=== PATIENT | female | born 1995 | race Caucasian/White ===

== ENCOUNTER 2019-07-12 11:28 | Inpatient (IN) | payer MEDICAID ==
[2019-07-12] MEDS: KETOROLAC 30 MG INJ IV (13:47)
[2019-07-12] MEDS: CEFTRIAXONE 1 GM/50 ML (PMX) 50 ML IVPB (13:49)
[2019-07-12 13:51] LABS: ADD MAN DIFF? NO
[2019-07-12 13:56] LABS: WHITE BLOOD COUNT 14.7 10^3/ul (4.8-10.8)
[2019-07-12 13:56] LABS: BASOPHILS % 0.1 % (0.0-2.0); HEMATOCRIT 41.2 % (37.0-47.0); HEMOGLOBIN 13.8 g/dl (12.0-16.0); LYMPHOCYTES # 1.8 10^3/ul (0.8-2.9); LYMPHOCYTES % 12.5 % (15.0-51.0); MEAN CORPUSCULAR HEMOGLOBIN 31.4 pg (29.0-33.0); MEAN CORPUSCULAR HGB CONC 33.5 g/dl (32.0-37.0); MEAN CORPUSCULAR VOLUME 93.8 fl (82.0-101.0); MEAN PLATELET VOLUME 11.5 fl (7.4-10.4); MONOCYTES % 6.4 % (0.0-11.0); NEUTROPHIL # 11.9 10^3/ul (1.6-7.5); NEUTROPHILS % 80.5 % (39.0-77.0); PLATELET COUNT 208 10^3/UL (140-415); RED BLOOD COUNT 4.39 10^6/ul (4.20-5.40); RED CELL DISTRIBUTION WIDTH 11.8 % (11.5-14.5)
[2019-07-12 14:14] LABS: ALANINE AMINOTRANSFERASE 18 IU/L (13-69); ALBUMIN 3.9 g/dl (3.3-4.9); ALBUMIN/GLOBULIN RATIO 1.21; ALKALINE PHOSPHATASE 74 IU/L (42-121); ANION GAP 9 (5-13); ASPARTATE AMINO TRANSFERASE 20 IU/L (15-46); BILIRUBIN,INDIRECT 0.8 mg/dl (0-1.1); BILIRUBIN,TOTAL 0.8 mg/dl (0.2-1.3); BLOOD UREA NITROGEN 10 mg/dl (7-20); CALCIUM 9.1 mg/dl (8.4-10.2); CARBON DIOXIDE 25 mmol/L (21-31); CHLORIDE 104 mmol/L (97-110); CREATININE 0.69 mg/dl (0.44-1.00); Estimated GFR > 60 mL/min (>60); GLUCOSE 97 mg/dl (70-220); POTASSIUM 3.3 mmol/L (3.5-5.1); SODIUM 138 mmol/L (135-144); TOTAL PROTEIN 7.1 g/dl (6.1-8.1)
[2019-07-12] MEDS ORDERED: ACETAMINOPHEN 325 MG TAB PO ×2 (15:00→15:30)
[2019-07-12] MEDS: ONDANSETRON 4 MG INJ IV ×2 (15:20→21:37)
[2019-07-12] MEDS: morphine 4 MG/ML VIAL IV (15:20)
[2019-07-12] MEDS: CEFEPIME 2GM/50 ML (PMX) 50 ML IVPB (15:21)
[2019-07-12] MEDS: SODIUM CHLORIDE 0.9% 1L BAG IV* (15:21)
[2019-07-12] MEDS ORDERED: DOCUSATE SODIUM 100 MG CAP PO (15:30)
[2019-07-12] MEDS ORDERED: MAGNESIUM HYDROXIDE 30ML CUP PO (15:30)
[2019-07-12] MEDS ORDERED: VANCOMYCIN IV PER PHARMACY XX (15:30)
[2019-07-12] MEDS ORDERED: NACL 0.9% 3 ML SYG IV (15:30)
[2019-07-12 16:10] LABS: C-REACTIVE PROTEIN 14.2 mg/dl (0.0-0.9)
[2019-07-12] MEDS: VANCOMYCIN 1 GM (PMX) 250 ML IVPB (16:27)
[2019-07-12 16:52] LABS: ERYTHROCYTE SEDIMENTATION RATE 29 mm/Hr (0-20)
[2019-07-12] MEDS: POTASSIUM CHLORIDE 100 ML IVPB ×2 (17:30→21:43)
[2019-07-12 18:53] LABS: LACTIC ACID 0.6 mmol/L (0.5-2.0)
[2019-07-12] MEDS: DEXTROSE 5%-0.45% NACL 1,000 ML IV (19:22)
[2019-07-12] MEDS: CEFEPIME 1GM/50 ML (PMX) 50 ML IVPB (20:23)
[2019-07-12] MEDS: FAMOTIDINE 20 MG INJ IV (20:23)
[2019-07-12 20:38] LABS: LACTIC ACID 0.7 mmol/L (0.5-2.0)
[2019-07-12] MEDS: KETOROLAC 15 MG INJ IV (21:38)
[2019-07-12] MEDS: VANCOMYCIN 500 MG (PMX) 100 ML IVPB (23:49)
[2019-07-13] MEDS: POTASSIUM CHLORIDE (SR) 20 MEQ TAB PO ×2 (00:55→09:23)
[2019-07-13] MEDS: DEXTROSE 5%-0.45% NACL 1,000 ML IV ×2 (04:37→08:09)
[2019-07-13 05:22] LABS: ADD MAN DIFF? NO
[2019-07-13 05:24] LABS: BASOPHILS % 0.2 % (0.0-2.0); EOSINOPHILS % 0.4 % (0.0-7.0); HEMATOCRIT 32.3 % (37.0-47.0); HEMOGLOBIN 10.8 g/dl (12.0-16.0); LYMPHOCYTES # 1.8 10^3/ul (0.8-2.9); LYMPHOCYTES % 15.9 % (15.0-51.0); MEAN CORPUSCULAR HEMOGLOBIN 31.8 pg (29.0-33.0); MEAN CORPUSCULAR HGB CONC 33.4 g/dl (32.0-37.0); MEAN PLATELET VOLUME 11.8 fl (7.4-10.4); MONOCYTE # 0.8 10^3/ul (0.3-0.9); MONOCYTES % 7.4 % (0.0-11.0); NEUTROPHIL # 8.5 10^3/ul (1.6-7.5); NEUTROPHILS % 75.6 % (39.0-77.0); PLATELET COUNT 165 10^3/UL (140-415); RED CELL DISTRIBUTION WIDTH 11.9 % (11.5-14.5)
[2019-07-13 05:24] LABS: WHITE BLOOD COUNT 11.3 10^3/ul (4.8-10.8)
[2019-07-13] MEDS: ONDANSETRON 4 MG INJ IV ×3 (05:34→23:39)
[2019-07-13] MEDS: KETOROLAC 15 MG INJ IV ×2 (05:34→14:56)
[2019-07-13 05:51] LABS: ANION GAP 5 (5-13); BLOOD UREA NITROGEN 5 mg/dl (7-20); CALCIUM 7.6 mg/dl (8.4-10.2); CARBON DIOXIDE 23 mmol/L (21-31); CHLORIDE 106 mmol/L (97-110); CREATININE 0.56 mg/dl (0.44-1.00); Estimated GFR > 60 mL/min (>60); GLUCOSE 264 mg/dl (70-220); MAGNESIUM 1.7 mg/dl (1.7-2.5); POTASSIUM 3.1 mmol/L (3.5-5.1); SODIUM 134 mmol/L (135-144)
[2019-07-13] MEDS: FAMOTIDINE 20 MG INJ IV ×2 (08:07→20:39)
[2019-07-13] MEDS: VANCOMYCIN 500 MG (PMX) 100 ML IVPB ×3 (08:08→17:15)
[2019-07-13] MEDS ORDERED: D5W-0.45 NACL + KCL 20 MEQ 1,000 ML IV (08:30)
[2019-07-13] MEDS: NS + KCL 20 MEQ 1,000 ML IV ×3 (08:30→21:50)
[2019-07-13] MEDS: CEFEPIME 1GM/50 ML (PMX) 50 ML IVPB ×2 (09:16→20:39)
[2019-07-13] MEDS: MAGNESIUM SULFATE 2 GM/50 ML 50 ML IVPB (09:23)
[2019-07-13] MEDS: morphine 2 MG INJ IV ×2 (09:23→22:42)
[2019-07-13] MEDS: VANCOMYCIN 750 MG (PMX) 250 ML IVPB (23:31)
[2019-07-14] MEDS: NS + KCL 20 MEQ 1,000 ML IV (02:57)
[2019-07-14 04:57] LABS: ADD MAN DIFF? NO
[2019-07-14 05:01] LABS: BASOPHILS % 0.2 % (0.0-2.0); EOSINOPHILS # 0.1 10^3/ul (0.0-0.5); EOSINOPHILS % 0.6 % (0.0-7.0); HEMOGLOBIN 10.7 g/dl (12.0-16.0); LYMPHOCYTES # 2.1 10^3/ul (0.8-2.9); LYMPHOCYTES % 19.6 % (15.0-51.0); MEAN CORPUSCULAR HEMOGLOBIN 31.7 pg (29.0-33.0); MEAN CORPUSCULAR HGB CONC 33.4 g/dl (32.0-37.0); MEAN CORPUSCULAR VOLUME 94.7 fl (82.0-101.0); MEAN PLATELET VOLUME 11.1 fl (7.4-10.4); MONOCYTE # 0.9 10^3/ul (0.3-0.9); NEUTROPHIL # 7.6 10^3/ul (1.6-7.5); NEUTROPHILS % 71.3 % (39.0-77.0); PLATELET COUNT 187 10^3/UL (140-415); RED BLOOD COUNT 3.38 10^6/ul (4.20-5.40); RED CELL DISTRIBUTION WIDTH 11.2 % (11.5-14.5)
[2019-07-14 05:01] LABS: WHITE BLOOD COUNT 10.6 10^3/ul (4.8-10.8)
[2019-07-14 05:25] LABS: ALBUMIN 2.5 g/dl (3.3-4.9); ANION GAP 3 (5-13); BLOOD UREA NITROGEN 5 mg/dl (7-20); CALCIUM 8.2 mg/dl (8.4-10.2); CARBON DIOXIDE 24 mmol/L (21-31); CHLORIDE 109 mmol/L (97-110); CREATININE 0.52 mg/dl (0.44-1.00); GLUCOSE 82 mg/dl (70-220); PHOSPHORUS 3.6 mg/dl (2.5-4.9); POTASSIUM 4.1 mmol/L (3.5-5.1); SODIUM 136 mmol/L (135-144)
[2019-07-14] MEDS: VANCOMYCIN 750 MG (PMX) 250 ML IVPB ×3 (08:14→23:50)
[2019-07-14] MEDS: ONDANSETRON 4 MG INJ IV ×3 (08:16→17:09)
[2019-07-14] MEDS: morphine 2 MG INJ IV (08:16)
[2019-07-14] MEDS: FAMOTIDINE 20 MG INJ IV (08:16)
[2019-07-14] MEDS: CEFEPIME 1GM/50 ML (PMX) 50 ML IVPB (11:08)
[2019-07-14] MEDS: traMADol 50 MG TAB PO (11:57)
[2019-07-14] MEDS: HYDROCODONE/APAP (5/325) TAB PO (13:24)
[2019-07-14] MEDS: HYDROCODONE/APAP (10/325) TAB PO (17:09)
[2019-07-14] MEDS: CEFTRIAXONE 1 GM/50 ML (PMX) 50 ML IVPB (18:04)
[2019-07-14] MEDS: FAMOTIDINE 20 MG TAB PO (20:46)
[2019-07-15 08:40] LABS: ADD MAN DIFF? NO
[2019-07-15 08:44] LABS: WHITE BLOOD COUNT 10.3 10^3/ul (4.8-10.8)
[2019-07-15 08:44] LABS: BASOPHILS % 0.2 % (0.0-2.0); EOSINOPHILS # 0.1 10^3/ul (0.0-0.5); EOSINOPHILS % 0.7 % (0.0-7.0); HEMATOCRIT 36.8 % (37.0-47.0); HEMOGLOBIN 12.4 g/dl (12.0-16.0); LYMPHOCYTES # 1.7 10^3/ul (0.8-2.9); LYMPHOCYTES % 16.9 % (15.0-51.0); MEAN CORPUSCULAR HEMOGLOBIN 31.9 pg (29.0-33.0); MEAN CORPUSCULAR HGB CONC 33.7 g/dl (32.0-37.0); MEAN CORPUSCULAR VOLUME 94.6 fl (82.0-101.0); MEAN PLATELET VOLUME 11.5 fl (7.4-10.4); MONOCYTE # 0.8 10^3/ul (0.3-0.9); MONOCYTES % 8.1 % (0.0-11.0); NEUTROPHIL # 7.6 10^3/ul (1.6-7.5); NEUTROPHILS % 73.8 % (39.0-77.0); PLATELET COUNT 226 10^3/UL (140-415); RED BLOOD COUNT 3.89 10^6/ul (4.20-5.40); RED CELL DISTRIBUTION WIDTH 11.3 % (11.5-14.5)
[2019-07-15] MEDS: FAMOTIDINE 20 MG TAB PO ×2 (09:00→21:41)
[2019-07-15 09:11] LABS: ALBUMIN 3.2 g/dl (3.3-4.9); ANION GAP 5 (5-13); BLOOD UREA NITROGEN 3 mg/dl (7-20); CALCIUM 9.2 mg/dl (8.4-10.2); CARBON DIOXIDE 28 mmol/L (21-31); CHLORIDE 102 mmol/L (97-110); CREATININE 0.54 mg/dl (0.44-1.00); GLUCOSE 75 mg/dl (70-220); PHOSPHORUS 4.4 mg/dl (2.5-4.9); POTASSIUM 4.4 mmol/L (3.5-5.1); SODIUM 135 mmol/L (135-144)
[2019-07-15 09:14] LABS: VANCOMYCIN,TROUGH 8.5 ug/ml (10.0-20.0)
[2019-07-15] MEDS: VANCOMYCIN 750 MG (PMX) 250 ML IVPB (09:20)
[2019-07-15] MEDS: TRIMETHOPRIM/SULFAMETHOX (DS) TAB PO (11:39)
[2019-07-15] MEDS ORDERED: VANCOMYCIN IV PER PHARMACY XX (15:00)
[2019-07-15] MEDS ORDERED: CEFTRIAXONE 1 GM/50 ML (PMX) 50 ML IVPB (15:00)
[2019-07-15] MEDS: CEFTRIAXONE 1 GM/50 ML (PMX) 50 ML IVPB (15:04)
[2019-07-15] MEDS: VANCOMYCIN 1 GM (PMX) 250 ML IVPB (15:29)
[2019-07-15] MEDS ORDERED: VANCOMYCIN 1 GM 250 ML IVPB (16:00)
[2019-07-15] MEDS: VANCOMYCIN 1 GM 250 ML IVPB (23:38)
[2019-07-16] MEDS ORDERED: VANCOMYCIN 750 MG (PMX) 250 ML IVPB
[2019-07-16] MEDS: NAPROXEN 500 MG TAB PO ×2 (02:43→15:05)
[2019-07-16 05:20] LABS: ADD MAN DIFF? NO
[2019-07-16 05:32] LABS: WHITE BLOOD COUNT 9.9 10^3/ul (4.8-10.8)
[2019-07-16 05:32] LABS: BASOPHILS % 0.4 % (0.0-2.0); EOSINOPHILS # 0.1 10^3/ul (0.0-0.5); EOSINOPHILS % 0.6 % (0.0-7.0); HEMATOCRIT 37.6 % (37.0-47.0); HEMOGLOBIN 12.9 g/dl (12.0-16.0); LYMPHOCYTES # 1.9 10^3/ul (0.8-2.9); LYMPHOCYTES % 18.8 % (15.0-51.0); MEAN CORPUSCULAR HEMOGLOBIN 32.1 pg (29.0-33.0); MEAN CORPUSCULAR HGB CONC 34.3 g/dl (32.0-37.0); MEAN CORPUSCULAR VOLUME 93.5 fl (82.0-101.0); MEAN PLATELET VOLUME 11.1 fl (7.4-10.4); MONOCYTE # 0.9 10^3/ul (0.3-0.9); MONOCYTES % 8.9 % (0.0-11.0); NEUTROPHILS % 70.7 % (39.0-77.0); PLATELET COUNT 248 10^3/UL (140-415); RED BLOOD COUNT 4.02 10^6/ul (4.20-5.40); RED CELL DISTRIBUTION WIDTH 11.2 % (11.5-14.5)
[2019-07-16] MEDS: SOD CHLORIDE 0.9% 1,000 ML IV ×2 (06:04→21:40)
[2019-07-16] MEDS: VANCOMYCIN 1 GM 250 ML IVPB ×2 (06:04→15:41)
[2019-07-16 06:15] LABS: ALBUMIN 3.1 g/dl (3.3-4.9); ANION GAP 7 (5-13); BLOOD UREA NITROGEN 5 mg/dl (7-20); CALCIUM 8.9 mg/dl (8.4-10.2); CARBON DIOXIDE 26 mmol/L (21-31); CHLORIDE 105 mmol/L (97-110); CREATININE 0.62 mg/dl (0.44-1.00); GLUCOSE 104 mg/dl (70-220); PHOSPHORUS 4.8 mg/dl (2.5-4.9); POTASSIUM 3.9 mmol/L (3.5-5.1); SODIUM 138 mmol/L (135-144)
[2019-07-16] MEDS: FAMOTIDINE 20 MG TAB PO ×2 (08:02→21:00)
[2019-07-16] MEDS ORDERED: MIDAZOLAM 1 MG/ML 2 ML INJ (11:37)
[2019-07-16] MEDS ORDERED: PROPOFOL 20 ML (11:37)
[2019-07-16] MEDS ORDERED: LIDOCAINE 2% (SDV) 5 ML INJ (11:37)
[2019-07-16] MEDS ORDERED: METOCLOPRAMIDE 10 MG INJ (11:38)
[2019-07-16] MEDS ORDERED: BUPIVACAINE 0.25% (MPF) 30 ML INJ (11:38)
[2019-07-16] MEDS ORDERED: ONDANSETRON 4 MG INJ (11:38)
[2019-07-16] MEDS ORDERED: FENTAnyl 50 MCG/ML VIAL (11:39)
[2019-07-16] MEDS ORDERED: CEFAZOLIN 1 GM INJ (12:40)
[2019-07-16] MEDS: BACITRACIN 50000 UNITS INJ (13:17)
[2019-07-16] MEDS: HYDROGEN PEROXIDE 118 ML (13:17)
[2019-07-16] MEDS: POLYMYXIN B 500000 UNIT INJ (13:17)
[2019-07-16] MEDS: VANCOMYCIN 1 GM INJ (13:26)
[2019-07-16] MEDS ORDERED: PROCHLORPERAZINE 10 MG INJ IV (13:30)
[2019-07-16] MEDS ORDERED: HYDROmorphONE 1 MG/5 ML IV SYRINGE IV (13:30)
[2019-07-16] MEDS ORDERED: MEPERIDINE 25 MG INJ IV (13:30)
[2019-07-16] MEDS ORDERED: FENTAnyl 50 MCG/ML VIAL IV (13:30)
[2019-07-16] MEDS ORDERED: ONDANSETRON 4 MG INJ IV (13:30)
[2019-07-16] MEDS: morphine 4 MG/ML VIAL IV (14:03)
[2019-07-16] MEDS ORDERED: OXYCODONE/ACETAMINOPHEN (5/325) TAB PO (14:30)
[2019-07-16] MEDS: CEFTRIAXONE 1 GM/50 ML (PMX) 50 ML IVPB (15:06)
[2019-07-16] MEDS: ONDANSETRON 4 MG INJ IV (19:53)
[2019-07-17] MEDS: VANCOMYCIN 1 GM 250 ML IVPB ×2 (00:14→06:00)
[2019-07-17 04:56] LABS: ADD MAN DIFF? NO; BASOPHILS % 0.3 % (0.0-2.0); EOSINOPHILS # 0.1 10^3/ul (0.0-0.5); EOSINOPHILS % 1.2 % (0.0-7.0); HEMATOCRIT 33.5 % (37.0-47.0); HEMOGLOBIN 11.2 g/dl (12.0-16.0); LYMPHOCYTES # 1.8 10^3/ul (0.8-2.9); MEAN CORPUSCULAR HEMOGLOBIN 31.6 pg (29.0-33.0); MEAN CORPUSCULAR HGB CONC 33.4 g/dl (32.0-37.0); MEAN CORPUSCULAR VOLUME 94.6 fl (82.0-101.0); MEAN PLATELET VOLUME 10.8 fl (7.4-10.4); MONOCYTE # 0.8 10^3/ul (0.3-0.9); MONOCYTES % 9.8 % (0.0-11.0); NEUTROPHILS % 64.9 % (39.0-77.0); PLATELET COUNT 236 10^3/UL (140-415); RED BLOOD COUNT 3.54 10^6/ul (4.20-5.40); RED CELL DISTRIBUTION WIDTH 11.4 % (11.5-14.5)
[2019-07-17 04:56] LABS: WHITE BLOOD COUNT 7.6 10^3/ul (4.8-10.8)
[2019-07-17 05:22] LABS: ALBUMIN 2.8 g/dl (3.3-4.9); ANION GAP 3 (5-13); BLOOD UREA NITROGEN 7 mg/dl (7-20); CALCIUM 8.8 mg/dl (8.4-10.2); CARBON DIOXIDE 27 mmol/L (21-31); CHLORIDE 107 mmol/L (97-110); CREATININE 0.76 mg/dl (0.44-1.00); GLUCOSE 83 mg/dl (70-220); PHOSPHORUS 4.7 mg/dl (2.5-4.9); POTASSIUM 4.2 mmol/L (3.5-5.1); SODIUM 137 mmol/L (135-144)
[2019-07-17] MEDS: FAMOTIDINE 20 MG TAB PO ×2 (09:00→21:00)
[2019-07-17] MEDS: ENOXAPARIN 40 MG/0.4 ML SYG SC (09:16)
[2019-07-17] MEDS: SOD CHLORIDE 0.9% 1,000 ML IV (14:20)
[2019-07-17] MEDS: CEFTRIAXONE 1 GM/50 ML (PMX) 50 ML IVPB (16:05)
[2019-07-17] MEDS: VANCOMYCIN 750 MG (PMX) 250 ML IVPB ×2 (17:27→23:40)
[2019-07-18] MEDS: ENOXAPARIN 40 MG/0.4 ML SYG SC (08:57)
[2019-07-18] MEDS: VANCOMYCIN 750 MG (PMX) 250 ML IVPB (08:57)
[2019-07-18] MEDS: FAMOTIDINE 20 MG TAB PO (08:59)
== END 2019-07-18 15:46 | disposition home or self-care (01) | DRG 603 ==
LOC: FTE 11:28 → MS1 15:12
PROC: 0J9P00Z Drainage of Left Lower Leg Subcutaneous Tissue and Fascia with Drainage Device, Open Approach (ICD-10-PCS; principal; 2019-07-16 12:57)
DX: L02.416 Cutaneous abscess of left lower limb (principal); M70.42 Prepatellar bursitis, left knee; L03.116 Cellulitis of left lower limb
CPT/HCPCS: 36415; 73562; 73590; 73721; 80048; 80053; 80069; 80202; 81025; 83605; 83735; 85025; 85651; 86140; 87040-91; 87070; 87075; 87102; 87116; 96365; 96375; 97110; 97116; 97161; 97530; 99285-25